=== PATIENT | male | born 1995 | race Caucasian/White ===

== ENCOUNTER 2021-04-11 01:01 | Emergency (ER) | payer OTHER, SELFPAY ==
[2021-04-11 01:11] VITALS: BP 128/76; PULSE 84; RESP 18; TEMP 36.8; O2SAT 98
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
[2021-04-11 02:44] VITALS: PULSE 72; RESP 16; O2SAT 98
== END 2021-04-11 02:44 | disposition home or self-care (01) ==
PROVIDERS: Emergency Provider Nurse Practitioner Family
DX: S30.810A Abrasion of lower back and pelvis, initial encounter (principal); V79.9XXA Bus occupant (driver) (passenger) injured in unspecified traffic accident, initial encounter
CPT/HCPCS: 72072; 72100; 99282